=== PATIENT | female | born 1980 | race Hispanic/Latino ===

== ENCOUNTER 2023-01-22 23:07 | Emergency (ER) | payer BC ==
[2023-01-22 23:13] VITALS: BP 116/66
[2023-01-23] MEDS ORDERED: KETOROLAC 30MG VIAL (30MG/ML) IVP ONE
[2023-01-23] MEDS ORDERED: FAMOTIDINE 20MG VIAL IV ONE
[2023-01-23] MEDS ORDERED: HYDROXYZINE 25 MG TABLET PO ONE
[2023-01-23] MEDS ORDERED: METOCLOPRAMIDE 10 MG/2 ML VIAL IVP ONE
== END 2023-01-23 00:27 | disposition left against medical advice (07) ==
LOC: EDH 23:07
DX: M62.838 Other muscle spasm (principal); M19.90 Unspecified osteoarthritis, unspecified site; I10 Essential (primary) hypertension; Z88.0 Allergy status to penicillin

== ENCOUNTER 2024-01-01 21:01 | Emergency (ER) | payer BC ==
[~2024-01-01] VITALS: Ht 165.1 cm; Wt 99.8 kg
[2024-01-01 21:47] LABS: BASOPHILS # (AUTO) 0.03 K/uL (0.00-0.20); BASOPHILS % (AUTO) 0.4 % (0.0-5.0); EOSINOPHILS # (AUTO) 0.02 K/uL (0.00-0.70); EOSINOPHILS % (AUTO) 0.3 % (0.0-8.0); HEMATOCRIT 39.5 % (36-48); IMMATURE GRANULOCYTE ABSOLUTE 0.02 K/uL (0-1); LYMPHOCYTES # (AUTO) 3.9 K/uL (1.0-4.8); LYMPHOCYTES % (AUTO) 50.1 % (21.0-51.0); MEAN CORPUSCULAR HEMOGLOBIN 32.2 pg (27.0-33.0); MEAN CORPUSCULAR HGB CONC 34.9 g/dL (32.0-36.0); MEAN CORPUSCULAR VOLUME 92.3 fL (79-99); MONOCYTES # (AUTO) 0.4 K/uL (0.1-1.0); NEUTROPHILS # (AUTO) 3.4 K/uL (1.8-7.7); NEUTROPHILS % (AUTO) 43.9 % (40.0-77.0); PLATELET COUNT (AUTO) 293 K/uL (130-400); RED BLOOD CELL COUNT(AUTO) 4.28 MIL/uL (4.00-5.50); RED CELL DISTRIBUTION WIDTH 13.3 % (11.0-15.5); WHITE BLOOD COUNT (AUTO) 7.8 K/uL (4.8-10.8)
[2024-01-01 22:15] LABS: ALCOHOL, BLOOD 304 mg/dL (0-10); CREATINE KINASE, TOTAL 100 U/L (21-232); SALICYLATE < 2.8 mg/dL (2.8-20.0)
[2024-01-01 22:16] LABS: ACETAMINOPHEN < 1 mcg/mL (10-30)
[2024-01-02 00:42] LABS: AMPHET/METH SCREEN,URINE NEGATIVE (NEGATIVE); BARBITURATE SCREEN, URINE NEGATIVE (NEGATIVE); BENZODIAZEPINES SCREEN,URINE POSITIVE (NEGATIVE); CANNABINOID SCREEN,URINE NEGATIVE (NEGATIVE); COCAINE SCREEN,URINE POSITIVE (NEGATIVE); OPIATE SCREEN,URINE NEGATIVE (NEGATIVE); PHENCYCLIDINE SCREEN,URINE NEGATIVE (NEGATIVE)
[2024-01-02] MEDS: 0.9%NACL 1000ML 1,000 ML IV ONE ×2 (01:13→08:43)
[2024-01-02 08:30] LABS: RAPID GROUP A STREP negative (NEGATIVE)
[2024-01-02 08:40] LABS: INFLUENZA TYPE A Negative For Type A (NEGATIVE); INFLUENZA TYPE B Negative For Type B (NEGATIVE)
[2024-01-02 08:42] LABS: COVID19 (SARS ANTIGEN RAPID) POSITIVE FOR SARS AG (NEGATIVE)
[2024-01-02 09:30] LABS: CREATININE 0.6 mg/dL (0.5-1.0); POTASSIUM 3.7 mmol/L (3.5-5.1)
[2024-01-02] MEDS: THIAMINE HCL 100 MG/ML 2ML VIAL IVP ONE (11:26)
[2024-01-02] MEDS: LACTATED RINGERS 1000ML 1,000 ML IV ONE (11:26)
[2024-01-02] MEDS: ACETAMINOPHEN 500 MG TABLET PO ONE (13:45)
[2024-01-02] MEDS: ONDANSETRON 4MG INJ IVP ONE (14:17)
[2024-01-02 15:23] VITALS: BP 136/74; PULSE 68; RESP 16; O2SAT 97
== END 2024-01-02 15:32 | disposition home or self-care (01) ==
LOC: EDH 21:01
DX: R45.851 Suicidal ideations (principal); U07.1 COVID-19; F10.129 Alcohol abuse with intoxication, unspecified; M19.90 Unspecified osteoarthritis, unspecified site; F32.A Depression, unspecified; I10 Essential (primary) hypertension; Z88.0 Allergy status to penicillin; Z79.899 Other long term (current) drug therapy
CPT/HCPCS: 99284; 87426; 82550; 80048; 80305; 84703; 85025; 87880; 87804 ×2; 36415 ×2; 96361; 96374; 96375; G0481; J7120; J7030 ×2; J3411; J2405

== ENCOUNTER 2024-01-03 21:58 | Emergency (ER) | payer BC ==
[~2024-01-03] VITALS: Ht 167.6 cm; Wt 105.2 kg
[2024-01-03 22:49] LABS: BASOPHILS # (AUTO) 0.03 K/uL (0.00-0.20); BASOPHILS % (AUTO) 0.3 % (0.0-5.0); EOSINOPHILS # (AUTO) 0.06 K/uL (0.00-0.70); EOSINOPHILS % (AUTO) 0.7 % (0.0-8.0); HEMATOCRIT 40.3 % (36-48); IMMATURE GRANULOCYTE ABSOLUTE 0.02 K/uL (0-1); LYMPHOCYTES # (AUTO) 3.8 K/uL (1.0-4.8); LYMPHOCYTES % (AUTO) 43.3 % (21.0-51.0); MEAN CORPUSCULAR HGB CONC 35.5 g/dL (32.0-36.0); MEAN CORPUSCULAR VOLUME 93.1 fL (79-99); MONOCYTES # (AUTO) 0.3 K/uL (0.1-1.0); MONOCYTES % (AUTO) 3.3 % (3.0-13.0); NEUTROPHILS # (AUTO) 4.6 K/uL (1.8-7.7); NEUTROPHILS % (AUTO) 52.2 % (40.0-77.0); PLATELET COUNT (AUTO) 254 K/uL (130-400); RED BLOOD CELL COUNT(AUTO) 4.33 MIL/uL (4.00-5.50); RED CELL DISTRIBUTION WIDTH 12.7 % (11.0-15.5); WHITE BLOOD COUNT (AUTO) 8.8 K/uL (4.8-10.8)
[2024-01-03 22:58] LABS: CARBON DIOXIDE 26 mmol/L (21-32); CHLORIDE 105 mmol/L (101-111); CREATININE 0.8 mg/dL (0.5-1.0); GLOMERULAR FILTR. RATE CALC 94 mL/min (>90); GLUCOSE,RANDOM 101 mg/dL (70-105); SODIUM SERUM 138 mmol/L (136-145); UREA NITROGEN, BLOOD 8 mg/dL (7-18)
[2024-01-03 23:03] LABS: ALANINE AMINOTRANSFERASE 42 U/L (12-78); ALCOHOL, BLOOD 226 mg/dL (0-10); ASPARTATE AMINOTRANSFERASE 38 U/L (10-37); BILIRUBIN,TOTAL 0.4 mg/dL (0.2-1.0); TOTAL PROTEIN, SERUM 6.7 g/dL (6.0-8.3)
[2024-01-03 23:05] LABS: ACETAMINOPHEN < 1 mcg/mL (10-30); SALICYLATE < 2.8 mg/dL (2.8-20.0)
[2024-01-04] MEDS: 0.9%NACL 1000ML 0 ML IV ONE (00:44)
[2024-01-04] MEDS: QUETIAPINE FUMARATE 25 MG TAB PO SCH (00:54)
[2024-01-04] MEDS: [UNRECOGNIZED DRUG - OTHER] IV ONE (06:51)
[2024-01-04 16:12] VITALS: BP 125/74; PULSE 74; RESP 20; O2SAT 99
== END 2024-01-04 16:13 | disposition home or self-care (01) ==
LOC: EDH 21:58
DX: F10.129 Alcohol abuse with intoxication, unspecified (principal); M19.90 Unspecified osteoarthritis, unspecified site; I10 Essential (primary) hypertension; F41.9 Anxiety disorder, unspecified; E66.9 Obesity, unspecified; Z68.37 Body mass index [BMI] 37.0-37.9, adult; Y90.7 Blood alcohol level of 200-239 mg/100 ml
CPT/HCPCS: 99283; 80053; 84703; 85025; 36415 ×2; 96360; 96361; G0481; J7030 ×2

== ENCOUNTER 2024-06-19 21:14 | Emergency (ER) | payer BC ==
[~2024-06-19] VITALS: Ht 165.1 cm; Wt 93.9 kg
--- NOTE | 2024-06-19 22:15 | ERN ---
ED Note History of Present Illness Stated Complaint: SWELLING UP ALL OVER HER BODY,DEHYDRATED,ARTHRITIS Chief Complaint: Abdominal Pain Time Seen by MD: 21:52 Dictation: History of present illness: 43-year-old female with history of psoriatic arthritis, presented to ED complaining of central chest pain, left-sided body pain, nausea. She states that the left-sided body pain is 10/10 and is constant. She takes 20 mg prednisone daily and alprazolam. As per the patient she received infusions for psoriatic arthritis today and the symptoms started. She also states that she is constipated and there is gradual decrease in body weight. She denies fever, cough, dysuria. Allergies: Coded Allergies: Penicillins (Unverified Allergy, Unknown, 01/22/23) Past Medical History Past Medical History: Arthritis Surgical History: Hysterectomy Review of System Dictation REVIEW OF SYSTEMS Positive for left-sided body pain, central chest pain, nausea CONSTITUTIONAL: Denies fevers, chills, or night sweats. No unintentional weight loss reported. ENT: No hearing loss, otalgia, otorrhea, rhinitis, rhinorrhea, hoarseness, or sore throat. CARDIOVASCULAR: Denies any exertional angina, dyspnea on exertion, orthopnea, paroxysmal nocturnal dyspnea, palpitations claudication. PULMONARY: Denies any shortness of breath, cough, phlegm / sputum, hemoptysis, pleuritic chest pain. SLEEP: Denies morning headaches, daytime somnolence or napping. Denies difficulty falling asleep, staying asleep, waking from sleep. Denies knowledge of snoring. GASTROINTESTINAL: Denies any type of dysphagia to either liquids or solids. Denies nausea, vomiting, abdominal pain, diarrhea, constipation, blood in stools . NEUROLOGICAL: Denies headache, motor weakness, sensory deficit, vertigo / spinning sensation, gait abnormalities, or tremors. GENITOURINARY: Denies frequency, urgency, nocturia, hematuria or incontinence, low urinary stream, straining to void, urinary intermittency or hesitancy ENDOCRINOLOGY: Denies polyuria, polydipsia, polyphagia or heat / cold intolerance. HEMATOLOGY: Denies thrombophilia / previous clots, or coagulopathy / bleeding disorders. ONCOLOGIC: Denies personal history of malignancy. DERMATOLOGIC: Denies rashes or pruritus. PSYCHIATRIC: Denies any suicidal or homicidal ideation. Denies hallucinations. Initial Vital Sign VS Vital Signs Date Time Temp Pulse Resp B/P (MAP) Pulse Ox O2 Delivery O2 Flow Rate FiO2 06/19/24 21:35 98.2 112 20 97 Room Air Physical Exam Dictation PHYSICAL EXAM GENERAL APPEARANCE: Well nourished . Awake and alert. Oriented to time, place and person. No acute cardiopulmonary distress. HEENT: Head normocephalic , atraumatic. Sclera anicteric . Pupils are round and reactive. Extraocular movements intact . No conjunctival injection. No nasal congestion. No throat congestion .Oral mucosa moist. NECK: Supple. No JVD. No thyromegaly. No submental, submandibular, pre- /postauricular, occipital or supraclavicular lymphadenopathy. No carotid bruits. CHEST: Normal chest expansion. No Telemetry. LUNGS: Clear to auscultation bilaterally . No rales, rhonchi or any wheezing. Equal tactile fremitus. Resonant to percussion . CARDIOVASCULAR: Regular rate and rhythm. S1 and S2 normal. No rubs, murmurs or gallops. ABDOMEN: Soft, nontender, and nondistended. There is no rebound tenderness, voluntary guarding, or rigidity. No hepatosplenomegaly. Bowel sounds normal in all four quadrants . NEUROLOGICAL: Cranial nerves II-XII grossly intact. Motor is 5/5 in bilateral upper and lower extremities . No sensory deficits. EXTREMITIES: Left upper and lower arm tender SKIN: Rashes seen on the knuckles PSYCHIATRY: Normal affect .No auditory or visual hallucinations. Normal speech. No dysarthria. Results (Laboratory/Radiology) EKG Comment: Intervals Rate: 118 W[place]: 164 QRSD: 88 QT: 344 QTc: [address]-elevation ED Course ED Course Orders Procedure Category Date Status Time Cbc With Differential LAB 06/19/24 Logged 21:57 Basic Metabolic Panel LAB 06/19/24 Logged 21:57 Hepatic Function Panel LAB 06/19/24 Logged 21:57 Drug Screen Urine LAB 06/19/24 Logged 22:06 12 Lead Ekg Tracing- EKG 06/19/24 Complete Technical 22:06 Ketorolac PHA 06/19/24 Complete Tromethamine 30mg/Ml 22:30 Ondansetron 4mg Inj PHA 06/19/24 Complete (Zofran 4mg Inj) 22:30 Current Medications Medications (Trade) Dose Ordered Sig/Madi Route PRN Reason Start Time Stop Time Status Last Admin Dose Admin Ketorolac Tromethamine (toRADol) 30 mg ONCE ONCE IM 06/19/24 22:30 06/19/24 22:31 DC 06/19/24 22:41 Ondansetron HCl (zoFRAN 4MG INJ) 4 mg ONCE ONCE IVP 06/19/24 22:30 06/19/24 22:31 DC Vital Signs Date Time Temp Pulse Resp B/P (MAP) Pulse Ox O2 Delivery O2 Flow Rate FiO2 06/19/24 21:35 98.2 112 20 97 Room Air Medical Decision Making MDM Differential diagnosis : Acute [place], acute gastritis, psoriatic arthritis flare- up Rationale: Tests considered and ordered secondary to shared decision making include: CBC, BMP, hepatic function, urine tox screen, EKG I will re-evaluate the patient after treatment and diagnostic exams have returned to determine whether they require further testing, can be safely discharged home, or need admission for further treatment and evaluation. Given the social determinants of health affecting care, including literacy, access to medical care, prescription drug management, and wnsg-ken-kknrgiy drugs, I will ensure that treatment plans are tailored accordingly. There are no social concerns with this patient. Risk of complication and/or morbidity or mortality of patient management: None Need for hospitalization: Patient does not meet criteria for hospitalization. Need for emergency major/minor surgery: No Prescription drug management Prescriptions will include symptomatic care Medications-Per medication reconciliation Previous outside records reviewed: Old ER visits. Patient's prior external medical records from other ER visits were reviewed by me as indicated. Prior testing and results from previous visits were reviewed. Prior tests were taken into account with medical decision making and resource utilization, independent historian/historians were used to obtain complete medical history. I independently interpreted the test that were performed, results were reviewed by me and considered findings on radiology. Medical management and examination interpretation discussions was done by me with other qualified healthcare professionals as indicated for the patient's care. Revaluation: Patient denied lab work. Stated considerable improvement in condition after Toradol and IV Zofran Disposition : Home DX & DISP Disposition: Discharge Departure Impression: Primary Impression: Acute gastritis Additional Impression: Psoriatic arthritis Critical Time: 30 minutes Condition: Stable Additional Instructions: Follow-up with primary care provider in 1-2 days Take medications as directed here in the emergency room. It is okay to continue home medications unless otherwise discussed during your visit in the emergency room today. Increase oral hydration. If a wound culture or urine culture was ordered here in the emergency room department, please follow-up with primary care provider and advised them to get reports from our facility. If you had any Jeronimo wrap/splints that were applied here placed to not remove them until you see your primary care physician. Return to your nearest emergency room if symptoms worsen or if there is no improvement. Call 911 if you need immediate assistance. Referrals: TEENA DELGADO MD (PCP) ATTESTATION BY PHYSICIAN I have seen and examined the patient. I reviewed the documentation, medical decision making, and treatment plan as noted by the resident provider above. I agree with the findings and plan of care. ANGY CHEN MD, ANCHU A MD Jun 19, 2024 22:15
--- NOTE | 2024-06-19 22:32 | EKG ---
[facility] Test Date: 2024-06-19 Test Time: 22:27:06 Pat Name: EL ARMENDARIZ Department: [facility] [address] Room: Gender: F Rolls Baker: [id number] : 1980 Requested By: NIKITA GIANG Order Number: [id number] Reading MD: Ever Ruvalcaba Measurements Intervals [place] Rate: 118 P: 72 [place]: 164 QRS: 74 QRSD: 88 T: 63 QT: 344 QTc: 483 Interpretive Statements Sinus tachycardia No previous ECG available for comparison Electronically Signed On 06-20-2024 19:12:11 TELEGRAPHER AGENT by Ever Ruvalcaba Please click the below link to view image of tracing.
[2024-06-19] MEDS: ketOROlac 30MG VIAL (30MG/ML) IM ONE (22:41)
[2024-06-19 23:12] LABS: CREATININE 0.8 mg/dL (0.5-1.0); POTASSIUM 3.7 mmol/L (3.5-5.1)
[2024-06-19] MEDS: ondanSETRON 4MG INJ IVP ONE (23:13)
[2024-06-19] MEDS: PANTOPrazole 40 MG/VIAL IVP ONE (23:13)
[2024-06-19 23:15] LABS: BASOPHILS # (AUTO) 0.02 K/uL (0.00-0.20); BASOPHILS % (AUTO) 0.2 % (0.0-5.0); EOSINOPHILS # (AUTO) 0.03 K/uL (0.00-0.70); EOSINOPHILS % (AUTO) 0.3 % (0.0-8.0); HEMATOCRIT 39.6 % (36-48); IMMATURE GRANULOCYTE ABSOLUTE 0.04 K/uL (0-1); LYMPHOCYTES # (AUTO) 0.8 K/uL (1.0-4.8); LYMPHOCYTES % (AUTO) 7.3 % (21.0-51.0); MEAN CORPUSCULAR HEMOGLOBIN 33.1 pg (27.0-33.0); MEAN CORPUSCULAR HGB CONC 35.4 g/dL (32.0-36.0); MEAN CORPUSCULAR VOLUME 93.6 fL (79-99); MONOCYTES # (AUTO) 0.1 K/uL (0.1-1.0); MONOCYTES % (AUTO) 0.9 % (3.0-13.0); NEUTROPHILS # (AUTO) 9.3 K/uL (1.8-7.7); NEUTROPHILS % (AUTO) 90.9 % (40.0-77.0); PLATELET COUNT (AUTO) 353 K/uL (130-400); RED BLOOD CELL COUNT(AUTO) 4.23 MIL/uL (4.00-5.50); RED CELL DISTRIBUTION WIDTH 14.2 % (11.0-15.5); WHITE BLOOD COUNT (AUTO) 10.2 K/uL (4.8-10.8)
[2024-06-19 23:16] LABS: ALBUMIN 3.6 g/dL (3.5-5.0); BILIRUBIN,DIRECT 0.1 mg/dL (0.0-0.3); BILIRUBIN,TOTAL 0.4 mg/dL (0.2-1.0); TOTAL PROTEIN, SERUM 7.8 g/dL (6.0-8.3)
[2024-06-20 00:18] VITALS: BP 133/84; PULSE 79; RESP 20; TEMP 98.4; O2SAT 100
== END 2024-06-20 01:02 | disposition home or self-care (01) ==
LOC: EDH 21:14
DX: K29.00 Acute gastritis without bleeding (principal); L40.50 Arthropathic psoriasis, unspecified; Z20.822 Contact with and (suspected) exposure to COVID-19; Z79.899 Other long term (current) drug therapy; Z88.0 Allergy status to penicillin; Z90.710 Acquired absence of both cervix and uterus
CPT/HCPCS: 99284; 96374; 96375; 87426; 80076; 80048; 85025; 36415; 93005; 96372; J2405; J1885; J2470; 96376

== ENCOUNTER 2025-07-14 01:33 | Emergency (ER) | payer BC ==
[~2025-07-14] VITALS: Ht 165.1 cm; Wt 95.3 kg
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
[2025-07-14 02:47] LABS: IMMATURE GRANULOCYTE ABSOLUTE 0.01 K/uL (0-1); NUCLEATED RED BLOOD CELLS 0.0 % (0.0-0.19); PLATELET COUNT (AUTO) 287 K/uL (130-400); RED BLOOD CELL COUNT(AUTO) 4.51 MIL/uL (4.00-5.50); RED CELL DISTRIBUTION WIDTH 14.5 % (11.0-15.5); WHITE BLOOD COUNT (AUTO) 7.4 K/uL (4.8-10.8)
[2025-07-14] MEDS: PROCHLORPERAZINE 10MG/2ML INJ IV ONE (03:00)
[2025-07-14] MEDS: 0.9%NACL 1000ML 1,000 ML IV SCH (03:01)
[2025-07-14 03:02] LABS: CREATININE 0.7 mg/dL (0.5-1.0); GLOMERULAR FILTR. RATE CALC 109.0 mL/min (>90); GLUCOSE,RANDOM 102.0 mg/dL (70-105); SODIUM SERUM 134.0 mmol/L (136-145); UREA NITROGEN, BLOOD 10.0 mg/dL (7-18)
[2025-07-14 03:05] LABS: PHOSPHORUS 2.9 mg/dL (2.5-4.9)
[2025-07-14] MEDS: PoTASSium chloRIDE 20MEQ ER 20 MEQ ERTAB PO ONE (03:29)
[2025-07-14] MEDS: MAGNESIUM 2GM PREMIX 50ML 50 ML IV SCH (03:29)
[2025-07-14 03:37] LABS: WBC MORPHOLOGY CONSISTENT W/DIFF
[2025-07-14 06:55] VITALS: BP 121/66; PULSE 70; RESP 18; TEMP 98.4; O2SAT 99
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
== END 2025-07-14 06:59 | disposition home or self-care (01) ==
LOC: EDH 01:33
DX: S09.90XA Unspecified injury of head, initial encounter (principal); M62.838 Other muscle spasm; F41.9 Anxiety disorder, unspecified; E87.6 Hypokalemia; E83.42 Hypomagnesemia; Z88.0 Allergy status to penicillin; Z90.710 Acquired absence of both cervix and uterus; W22.8XXA Striking against or struck by other objects, initial encounter; Y93.89 Activity, other specified; Y92.89 Other specified places as the place of occurrence of the external cause; Y99.8 Other external cause status
CPT/HCPCS: 99285; 70450; 96374; 96375; 83735; 84100; 80048; 85025; 36415; 72125; J3475; J0780